=== PATIENT | male | born 1975 | race African-American/Black ===

== ENCOUNTER 2017-10-06 19:23 | Emergency (ER) | payer OTHER ==
[2017-10-06] MEDS ORDERED: ONDANSETRON (ODT) 4 MG TAB ODT (19:44)
[2017-10-06] MEDS: ONDANSETRON (ODT) 4 MG TAB ODT (19:45)
[2017-10-06] MEDS: LORAZEPAM 1 MG TAB PO (19:49)
== END 2017-10-06 20:05 | disposition home or self-care (01) ==
LOC: E/R 19:23
DX: S09.90XA Unspecified injury of head, initial encounter (principal); F10.929 Alcohol use, unspecified with intoxication, unspecified; F17.210 Nicotine dependence, cigarettes, uncomplicated; V89.2XXA Person injured in unspecified motor-vehicle accident, traffic, initial encounter
CPT/HCPCS: 82962; 99283